=== PATIENT | female | born 1990 | race Caucasian/White ===

== ENCOUNTER 2022-06-30 00:54 | Day surgery (SDC) | payer OTHER, SELFPAY ==
[2022-06-22 14:33] VITALS: BMI 23.1
--- NOTE | 2022-06-22 14:40 | PC.NURSE ---
Report to the Outpatient Waiting Room, entrance under the green pavilion located off [facility], at time 0600 on date 06/30/22. Planned Procedure Time: 0730. Time changes happen often and if your time is changed the preop area will call you the afternoon before. - You and your visitor will be asked to self-screen and do not enter if you have any COVID symptoms. - Only one visitor is requested with a max of two and NO children visitors are allowed at this time. - The patient visitor may be requested to leave or wait in car when not with patient due to distancing restrictions. - A mask is optional within the hospital at this time. Patients may have clear liquids (water, carbonated beverages, clear teas, apple juice) until 3 hours prior to surgery with a maximum of 20 ounces. - No food from midnight until time of surgery Take the following medications with a SIP of water the morning of surgery: ATIVAN IF NEEDED DO NOT STOP ANY OF YOUR OTHER PRESCRIPTION MEDICATIONS PRIOR TO SURGERY?EXCEPT THE FOLLOWING Medications to discontinue per physician: IBUPROFEN Date to take last dose: PER DR. GURROLA Please no make-up, nail gabonese, hairspray, perfume, deodorant, or body powder the day of surgery. No jewelry (including any body piercings) or valuables the day of surgery, leave them at home. Please take a shower or bath the night before, or the morning of, surgery with an antibacterial soap. Wear comfortable, loose fitting clothing. - Jewelry must be removed prior to entering the operating room. Rings and piercings that are not removed may be cut off. - The hospital will not accept responsibility for valuables. - Please leave all valuables, including medications, at home the day of surgery. If you are going home after surgery, a licensed driver supervisor must drive you home. - NO public transportation without another adult if you receive anesthesia. - We recommend that an adult stay with you for 24 hours following discharge. - We also recommend that you do not drive, make important decision, drink alcoholic beverages, or take any drugs that were not prescribed by your health care provider for at least 24 hours after your discharge time. Follow any additional instructions given to you from your surgeon. If you or anyone in your household have experienced Covid symptoms in the past week, please notify your surgeon or the nurse liaison at the phone number below for possible testing. Telephone instructions given to PT - LISA TRAN and asked if any additional questions and then verbalized understanding. Patient advised to call surgeon office or pre surgery nurse liaison [phone] if any additional questions.
--- NOTE | 2022-06-29 17:06 | PM.IMHP ---
H&P: HPI History of Present Illness Date/Time: 06/29/22 17:06 Chief Complaint: Tonsillitis adenoiditis recurrent tonsillitis chronic tonsillitis adenoid hypertrophy Narrative: planned surgical procedure Review of Systems Review of Systems: All systems reviewed & are unremarkable except as noted in HPI and below PMFSH Past Medical History Medical History Anxiety Raynaud disease Social History Social History Smoking status: Never smoker Alcohol intake: current Alcohol use details: 1/MONTH Substance use: never Substance use type: does not use Living arrangements: with friend(s) Additional living arrangements comments: BOYFRIEND Spiritual care concerns: No Meds Home Medications and Allergies Home Medications Medication Instructions Recorded Confirmed Type ibuprofen 600 mg tablet 600 mg PO Q6H PRN Pain 06/22/22 06/22/22 History lorazepam 1 mg tablet 1 mg PO BID PRN Anxiety 06/22/22 06/22/22 History Allergies Allergy/AdvReac Type Severity Reaction Status Date / Time No Known Allergies Allergy Mild Verified 06/22/22 14:32 Exam Narrative: large tonsils cryptic infected appearing Assessment and Plan Assessment and plan (1) Recurrent tonsillitis: Code(s): J03.91 - Acute recurrent tonsillitis, unspecified Status: Acute Assessment and Plan: plan OR for tonsillectomy possible adenoidectomy. Risks were discussed including infection bleeding postoperative bleeding 3-5% yellow pharyngeal insufficiency ear pain throat pain damage to any structure above the clavicles damage to any structure during the maintenance and/or induction of anesthsia. difficulty swallowing change in taste need for further procedures failure to resolve symptoms. (2) Halitosis: Code(s): R19.6 - Halitosis Status: Acute (3) Tonsil stone: Code(s): J35.8 - Other chronic diseases of tonsils and adenoids Status: Acute (4) Chronic tonsillitis: Code(s): J35.01 - Chronic tonsillitis Status: Acute (5) Adenoiditis: Code(s): J35.02 - Chronic adenoiditis Status: Acute
[2022-06-30] VITALS (10 sets, daily range): BP systolic 99–131; BP diastolic 59–83; PULSE 59–95; RESP 12–18; TEMP 36.7–37.2; O2SAT 98–100
[2022-06-30] MEDS: LACTATED RINGERS 1,000 ML 30 ML IV CONT (06:33)
[2022-06-30] MEDS: ACETAMINOPHEN 500 MG TABLET 1000 MG PO (06:34)
--- NOTE | 2022-06-30 06:42 | P.PNAN_ITS ---
Anes - Initial Pre Proc Eval Procedure: Operation Date: 06/30/22 07:30 Proposed Procedures p Tonsillectomy And Adenoidectomy - John Winkler MD Date/Time: 06/30/22 06:42 Surgeon: John Winkler MD Pre Op Diagnosis: chronic tonsillitis Patient Data Age: 31 Gender: F Height: 1.63 m Weight: 63.55 kg Last Vital Signs Temp 37.2 C 06/30/22 06:20 Pulse 76 06/30/22 06:20 Resp 16 06/30/22 06:20 BP 131/78 06/30/22 06:20 Pulse Ox 100 06/30/22 06:20 O2 Del Method Room Air 06/30/22 06:20 Allergies Allergy/AdvReac Type Severity Reaction Status Date / Time No Known Allergies Allergy Mild Verified 06/30/22 06:27 Home Medications Medication Instructions Recorded Confirmed Type ibuprofen 600 mg tablet 600 mg PO Q6H PRN Pain 06/22/22 06/30/22 History lorazepam 1 mg tablet 1 mg PO BID PRN Anxiety 06/22/22 06/30/22 History Patient hx anesthesia problems: none Family hx anesthesia problems: none Results Review: All pre-operative results and documents have been reviewed as part of the pre- operative evaluation. [facility], [facility] Past Medical History Medical History Anxiety Raynaud disease Social History Social History Smoking status: Never smoker Alcohol intake: current Alcohol use details: 1/MONTH Substance use: never Substance use type: does not use Living arrangements: with friend(s) Additional living arrangements comments: BOYFRIEND Spiritual care concerns: No Anes - Eval Final PreProcedure Day of Procedure 06/30/22 06:42 Patient weight: normal Heart: regular rate and rhythm Lungs: clear to auscultation Airway: Mallampati scale class 1 Neurological: alert and oriented Last oral intake: >/= 8 hours ASA classification: II Emergent: no Anesthetic plan: proceed Anesthesia type and monitoring: general GIVS and standard monitoring Results Review: All pre-operative results and documents have been reviewed as part of the pre- operative evaluation. Informed Consent: The patient's anesthetic plan and its attendant risks and benefits were discussed with the patient/family/POA. Questions were solicited and answers provided to the satisfaction of the patient/family/POA.
--- NOTE | 2022-06-30 07:13 | WPDHPUPDATE1 ---
History and Physical Update Update Date/Time: 06/30/22 07:13 History and Physical has been reviewed, including an updated exam of the patient. There are NO changes in the patient's condition. Risks, benefits, and alternatives have been discussed and questions answered. Patient agrees to proceed with procedure.
[2022-06-30] MEDS: SCOPOLAMINE 1.5 MG PATCH TRANSDERM (07:20)
[2022-06-30] MEDS: fentaNYL CITRATE INJ (*CRX) 100 MCG/2 ML VIAL 25 MCG IV PUSH (08:22)
--- NOTE | 2022-06-30 08:25 | W.PM.PROC2 ---
Procedure Note - Detailed Date of Procedure 06/30/22 Pre-op Diagnosis chronic tonsillitisChronic adenoiditis Post-op Diagnosis Same Procedure Performed tonsillectomy adenoidectomy Surgeon John Winkler MD Anesthesia General Indications see above Findings cryptic scarred in tonsils consistent with chronic tonsillitis 1 to 2+ adenoid pad mucoid purulence over them Description of Procedure patient identified consent verified. Patient brought operating room. Time-out performed. General anesthesia induced endotracheal tube secured. Patient prepped draped position 2nd time-out. McIvor mouth gag inserted opened revealing tonsils described above they were dissected in extracapsular plane using Bovie electrocautery at a setting of 10. Any bleeding was controlled with Bovie suction electrocautery at a setting of 12 and 15. In between tonsils McIvor mouth gag was lowered and reopened. Following the tonsillectomy McIvor mouth gag reopened red rubber catheters inserted transnasally suspended anteriorly moving the soft palate anteriorly. Mirror utilized to view the adenoid pad described above. This was suction Bovie at a setting of 30 small amount of adenoid tissue was removed. Patient tolerated the procedure well McIvor mouth gag lowered red rubber catheters removed McIvor mouth gag reopened to reveal no further bleeding. Patient tolerated the procedure well everything removed from the patient's oral cavity and nose. Total blood loss about 5 cc. Patient tolerated the procedure well. I performed all dictated portions of the procedure. No complications. Care the patient given Anesthesiology. Patient taken to PACU. Estimated Blood Loss 5 Drains No Packing No Pathology Yes Complications No immediate complications Condition Stable Disposition PACU [facility] Billing Surgery - Charge Forward: Surgery Billing
[2022-06-30] MEDS: oxyCODONE HCL (*CRX) 5 MG TAB IR PO (09:24)
== END 2022-06-30 10:00 | disposition home or self-care (01) ==
PROVIDERS: PCP Student in an Organized Health Care Education/Training Program; Visit Provider Otolaryngology
PROC: (CPT 42821; principal; 2022-06-30 07:30)
DX: J35.03 Chronic tonsillitis and adenoiditis (principal); R19.6 Halitosis; F41.9 Anxiety disorder, unspecified
CPT/HCPCS: 42821; 88302; A9270; J0330; J1100; J2250; J2405; J2704; J3010; J7120

== ENCOUNTER 2023-02-13 19:31 | Emergency (ER) | payer OTHER, SELFPAY ==
[2023-02-13] VITALS (13 sets, daily range): BP systolic 111–143; BP diastolic 68–93; PULSE 63–85; RESP 15–22; TEMP 36.5; O2SAT 100
--- NOTE | ~2023-02-13 | XR_ITS ---
EXAMINATION: XR chest 2V Exam Date/Time: 02/13/2023 20:30 CDT HISTORY: shortness of breath, mid chest pressure Comparison: None. RESULT: Lines, tubes, and devices: None. Lungs and pleura: Clear. Cardiomediastinal silhouette: Normal. Other: No acute osseous or upper abdominal finding. IMPRESSION: No acute cardiopulmonary process. Reviewed, dictated and finalized at location K.
--- NOTE | 2023-02-13 19:34 | ECG_ITS ---
Measurements Intervals [place] Rate: 79 P: 66 NM: 132 QRS: 81 QRSD: 98 T: 51 QT: 352 QTc: 404 Interpretive Statements SINUS RHYTHM WITH SINUS ARRHYTHMIA MINIMAL Q WAVES- INF/LAT LEADS BASELINE ARTIFACT- I, III, AVR, AVL BORDERLINE ECG NO PREVIOUS ECG AVAILABLE FOR COMPARISON Electronically Signed On 02-14-2023 6:57:11 CDT by Tal Schneider D.O.
--- NOTE | 2023-02-13 20:04 | ED.GENADULT ---
HPI - General Adult General Chief complaint: Anxiety Stated complaint: chest pressure, anxiety Time Seen by Provider: 02/13/23 20:04 History of Present Illness HPI narrative: Patient is a 32-year-old female with history of anxiety, depression, bipolar disorder here with anxiety, chest pain and shortness of breath. Patient notes that for the last couple of days she has been having heightened level of anxiety. She states that she has been attempting to use her Ativan at home which is prescribed by her psychiatrist without improvement of her symptoms. She took multiple doses today, last dose was 1 mg at 5:30 p.m. without relief of her symptoms. She describes them as chest heaviness and palpitations. She additionally is experiencing some difficulty catching her breath and acid reflux like symptoms. She notes she has had some increased burping. She denies any recent increased stressors. She does have a psychiatrist that she follows with closely, notes that she is prescribed several medications for her anxiety, depression, bipolar which she is somewhat noncompliant to because she does not like how they make her feel but her psychiatrist is aware. she denies prior history of PE or DVT, no recent travel, surgery. No family history of sudden cardiac at a young age, she does have some history of CAD in her maternal uncles however they are were all greater than 65 years old when they began having these issues. No cough, congestion, fever, chills. Related Data Home Medications Medication Instructions Recorded Confirmed ibuprofen 600 mg tablet 600 mg PO Q6H PRN Pain 06/22/22 06/30/22 lorazepam 1 mg tablet 1 mg PO BID PRN Anxiety 06/22/22 06/30/22 Allergies Allergy/AdvReac Type Severity Reaction Status Date / Time No Known Allergies Allergy Mild Verified 02/13/23 19:32 Review of Systems Review of Systems: CONSTITUTIONAL: Denies fever, chills, or sweats. EYES: Denies visual changes, redness, or discharge. ENT: Denies rhinorrhea, congestion, sore throat, or otalgia. CARDIOVASCULAR: chest pain and palpitations, No edema. RESPIRATORY: Dyspnea, Denies cough GASTROINTESTINAL: Increased burping. Denies abdominal pain, nausea, vomiting, or diarrhea. GENITOURINARY: Denies dysuria or hematuria. SKIN: Denies rash or itching. MUSCULOSKELETAL: Denies back pain, joint pain, or myalgia. NEUROLOGIC: Denies headache, numbness, or weakness. PSYCHIATRIC: Anxiety, No HI or SI. [facility] Past Medical History Medical History Anxiety Raynaud disease Social History Social History Smoking status: Never smoker Alcohol intake: current Alcohol use details: 1/MONTH Substance use: never Substance use type: does not use Living arrangements: with friend(s) Additional living arrangements comments: BOYFRIEND Spiritual care concerns: No Exam Narrative: GENERAL: Well-appearing, well-nourished, and in no acute distress. HEAD: Normocephalic, atraumatic. EYES: PERRLA and EOMI. ENT: Nares clear. Mucous membranes moist. NECK: Supple. CHEST: Clear to auscultation. No respiratory distress. HEART: Regular rate and rhythm. Normal peripheral pulses. ABDOMEN: Soft, nontender, nondistended. EXTREMITIES: Normal range of motion. No edema. SKIN: Warm, dry, no rash. NEURO: No focal deficits. Alert and oriented x3. PSYCH: Tearful, anxious appearing. Course Course Emergency Course: Patient is a 32 year old female with history of anxiety, here with complaints of anxiety and panic attack. Triage vitals shows RR of 22, normal respiratory rate. Patient seen evaluated, anxious and tearful on exam. Although she has history of anxiety, will do evaluation for cardiac origin of chest pain, pneumonia, PTX. Patient low risk wells, will do d-dimer. Will additionally do TSH. Will give dose of IV ativan. Lab work reviewed, CBC grossly nor
[2023-02-13 20:36] LABS: Basophils Absolute Auto 0.1 K/mm3 (0.0-0.1); Basophils Percent Auto 0.5 % (0.2-1.2); Eosinophils Percent Auto 0.2 % (0-4.4); Hematocrit 42.8 % (37.0-47.0); Immature Granulocyte Absolute 0.03 K/mm3 (0.00-0.031); Immature Granulocyte Percent A 0.3 % (0-0.5); Lymphocytes Absolute Auto 2.23 K/mm3 (0.9-3.2); Lymphocytes Percent Auto 23.4 % (18.3-44.2); Mean Corpuscular HGB Conc 32.7 g/dl (32-36); Mean Corpuscular Hemoglobin 29.2 pg (26-34); Mean Corpuscular Volume 89.2 fl (80-100); Mean Platelet Volume 10.3 fl (7.4-10.4); Monocytes Absolute Auto 0.4 K/mm3 (0.1-0.6); Monocytes Percent Auto 4.6 % (2.6-8.5); Neutrophils Absolute Auto 6.7 K/mm3 (1.3-6.7); Platelet Count Result 296 k/mm3 (150-375); White Blood Count 9.5 K/mm3 (4.5-10.0)
[2023-02-13 20:49] LABS: D Dimer < 0.27 ug/mL (<0.48)
[2023-02-13 20:50] LABS: Alanine Aminotransferase 20 U/L (6-35); Albumin Level 4.8 g/dL (3.5-5.1); Alkaline Phosphatase 65 U/L (38-126); Anion Gap 12 mmol/L (8-16); Aspartate Amino Transferase 26 U/L (14-36); Bilirubin,Total 0.5 mg/dL (0.2-1.3); Blood Urea Nitrogen 17 mg/dL (7-17); Calcium 9.3 mg/dL (8.4-10.2); Carbon Dioxide 25 mmol/L (22-30); Chloride 103 mmol/L (98-107); Estimated CRCL calculation 86 ml/min; Estimated Glomerular Filt Rate > 60; Glucose 94 mg/dL (65-110); Lipase 72 U/L (23-300); Potassium 3.8 mmol/L (3.4-5.0); Sodium 140 mmol/L (137-145)
[2023-02-13] MEDS: PANTOPRAZOLE SODIUM IV 40 MG VIAL IV PUSH (20:52)
[2023-02-13] MEDS: LORazepam INJ (*CRX) 2 MG/ML VIAL 1 MG IV PUSH (20:52)
[2023-02-13 21:02] LABS: Troponin I < 0.012 ng/mL (0.000-0.034)
== END 2023-02-13 23:13 | disposition home or self-care (01) ==
PROVIDERS: Emergency Provider Student in an Organized Health Care Education/Training Program; PCP Student in an Organized Health Care Education/Training Program
DX: R00.2 Palpitations (principal); R06.02 Shortness of breath; I73.00 Raynaud's syndrome without gangrene; F31.9 Bipolar disorder, unspecified
CPT/HCPCS: 36415; 71046; 80053; 81025; 83690; 84443; 84484; 85025; 85380; 93005; 96374; 96375; 99284; C9113; J2060